=== PATIENT | female | born 1940 | race Caucasian/White ===

== ENCOUNTER 2016-11-29 18:17 | Inpatient (IN) | payer MEDICARE, OTHER ==
[~2016-11-29] VITALS: Ht 160 cm; Wt 65.5 kg
[2016-11-29 18:47] VITALS: BP 175/105; PULSE 112; RESP 18; TEMP 98.5; O2SAT 98
[2016-11-29 21:35] LABS: AUTOMATED NEUTROPHIL # 5.4 TH/MM3 (1.8-7.7); BASOPHIL # 0.1 TH/MM3 (0-0.2); BASOPHIL % 1.3 % (0.0-2.0); EOSINOPHIL % 9.5 % (0.0-4.0); HEMATOCRIT 42.5 % (35.0-46.0); HEMO FLAGS DIFF FINAL; LYMPHOCYTE # 2.8 TH/MM3 (1.0-4.8); MEAN CORPUSCULAR HEMOGLOBIN 26.8 PG (27.0-34.0); MEAN CORPUSCULAR HGB CONC 33.1 % (32.0-36.0); MONO % 7.5 % (0.0-8.0); NEUT % 53.7 % (16.0-70.0); PLATELET COUNT 275 TH/MM3 (150-450); RED BLOOD COUNT 5.25 MIL/MM3 (4.00-5.30); RED CELL DISTRIBUTION WIDTH 12.8 % (11.6-17.2)
[2016-11-29 22:04] LABS: ANION GAP 11 MEQ/L (5-15)
[2016-11-29 22:08] LABS: ALKALINE PHOSPHATASE 132 U/L (45-117); ALT (GPT) 25 U/L (10-53); AST (GOT) 23 U/L (15-37); BLOOD UREA NITROGEN 18 MG/DL (7-18); CHLORIDE 103 MEQ/L (98-107); GLOMERULAR FILTRATION RATE 78 ML/MIN (>89); POTASSIUM 3.8 MEQ/L (3.5-5.1); SODIUM (NA) 137 MEQ/L (136-145); TOTAL BILIRUBIN ADULT 0.3 MG/DL (0.2-1.0)
[2016-11-29 22:14] LABS: ACETAMINOPHEN LESS THAN 2.0 MCG/ML (10.0-30.0); ALCOHOL LESS THAN 3 MG/DL (0-5)
--- NOTE | 2016-11-29 23:05 | PD ---
HPI Chief Complaint: Back/ Neck Pain or Injury Time Seen by Provider: 20:17 Travel History International Travel<30 days: No Contact w/Intl Traveler<30days: No Traveled to known affect area: No History of Present Illness HPI Patient is a 76 year old female who is brought in by police under a hig[place] act after reportedly making suicidal statements. She says she was arguing with her grandson and she believes he convinced her daughter to call the police to place her under a [place] Act. She denies feeling suicidal. She denies any medical complaints. [facility] Past Medical History Medical History: Denies Significant Hx Tetanus Vaccination: < 5 Years Influenza Vaccination: No Past Surgical History Surgical History: No Previous Surgery Social History Alcohol Use: No Tobacco Use: No Substance Use: No Allergies-Medications (Allergen,Severity, Reaction): Coded Allergies: [place] [facility] Dust (Verified Allergy, Unknown, 11/29/16) Reported Meds & Prescriptions Reported Meds & Active Scripts Active No Active Prescriptions or Reported Medications Review of Systems Except as stated in HPI: all other systems reviewed are Neg General / Constitutional: No: Fever, Chills Eyes: No: Blurred Vision HENT: No: Headaches, Lightheadedness Cardiovascular: No: Chest Pain or Discomfort Respiratory: No: Shortness of Breath Gastrointestinal: No: Nausea, Vomiting Musculoskeletal: No: Edema, Pain Skin: No Rash, No Change in Pigmentation Neurologic: No: Weakness, Dizziness Physical Exam Narrative GENERAL: Awake and alert, in no acute distress. SKIN: Focused skin assessment warm/dry. HEAD: Atraumatic. Normocephalic. EYES: Pupils equal and round. No scleral icterus. EOMI ENT: Mucous membranes pink and moist. NECK: Trachea midline. No JVD. CARDIOVASCULAR: Regular rate and rhythm. No murmur appreciated. RESPIRATORY: No accessory muscle use. Clear to auscultation. Breath sounds equal bilaterally. GASTROINTESTINAL: Abdomen soft, non-tender, nondistended. MUSCULOSKELETAL: No obvious deformities. No clubbing. No cyanosis. No edema. NEUROLOGICAL: Awake and alert. No obvious cranial nerve deficits. Motor grossly within normal limits. Normal speech. PSYCHIATRIC: Appropriate mood and affect; insight and judgment normal. Data Data Last Documented VS Vital Signs Date Time Temp Pulse Resp B/P (MAP) Pulse Ox O2 Delivery O2 Flow Rate FiO2 11/29/16 20:19 18 11/29/16 18:47 98.5 112 175/105 (128) 98 Orders Orders Complete Blood Count With Diff (11/29/16 19:08) Comprehensive Metabolic Panel (11/29/16 19:08) Psych Screen (11/29/16 19:08) Drug Screen, Random Urine (11/29/16 19:08) Alcohol (Ethanol) (11/29/16 19:08) Salicylates (Aspirin) (11/29/16 19:08) Tylenol (Acetaminophen) (11/29/16 19:08) Labs Laboratory Tests Test 11/29/16 18:28 11/29/16 19:50 Urine Opiates Screen NEG Urine Barbiturates Screen NEG Urine Amphetamines Screen NEG Urine Benzodiazepines Screen NEG Urine Cocaine Screen NEG Urine Cannabinoids Screen NEG White Blood Count 10.0 TH/MM3 Red Blood Count 5.25 MIL/MM3 Hemoglobin 14.1 GM/DL Hematocrit 42.5 % Mean Corpuscular Volume 81.0 FL Mean Corpuscular Hemoglobin 26.8 PG Mean Corpuscular Hemoglobin Concent 33.1 % Red Cell Distribution Width 12.8 % Platelet Count 275 TH/MM3 Mean Platelet Volume 8.9 FL Neutrophils (%) (Auto) 53.7 % Lymphocytes (%) (Auto) 28.0 % Monocytes (%) (Auto) 7.5 % Eosinophils (%) (Auto) 9.5 % Basophils (%) (Auto) 1.3 % Neutrophils # (Auto) 5.4 TH/MM3 Lymphocytes # (Auto) 2.8 TH/MM3 Monocytes # (Auto) 0.8 TH/MM3 Eosinophils # (Auto) 1.0 TH/MM3 Basophils # (Auto) 0.1 TH/MM3 CBC Comment DIFF FINAL Differential Comment Blood Urea Nitrogen 18 MG/DL Creatinine 0.73 MG/DL Random Glucose 134 MG/DL Total Protein 8.3 GM/DL Albumin 4.2 GM/DL Calcium Level 9.5 MG/DL Alkaline Phosphatase 132 U/L Aspartate Amino Transf (AST/SGOT) 23 U/L Alanine Aminotransferase (ALT/SGPT) 25 U/L Total Bilirubin 0.3 MG/DL Sodium Level 137 MEQ/L Potassium Level 3.8 MEQ/L Chloride Level 103 MEQ/L Carbon Dioxide Level 23.0 MEQ/L Anion Gap 11 MEQ/L Estimat Glomerular Filtration Rate 78 ML/MIN Salicylates Level LESS THAN 1.7 MG/DL Acetaminophen Level LESS THAN 2.0 MCG/ML Ethyl Alcohol Level LESS THAN 3 MG/DL MDM Medical Decision Making Medical Screen Exam Complete: Yes Emergency Medical Condition: Yes Differential Diagnosis Psychosis versus electrolyte abnormality versus intoxication versus depression Narrative Course Patient is a 76-year-old female brought in by police under [place] act. She denies any complaints at this time. Exam shows no acute abnormalities. Labs sent show no acute abnormalities. Patient will be medically cleared for psychiatric screening. Diagnosis Primary Impression: Medical clearance for psychiatric admission Scripts No Active Prescriptions or Reported Meds Condition: Ashly Chamorro MD Nov 29, 2016 23:05
[2016-11-30 06:24] VITALS: BP 167/87; PULSE 97; RESP 18; O2SAT 97
[2016-11-30 07:57] VITALS: BP 139/82; PULSE 107; RESP 19; TEMP 97.6; O2SAT 96
[2016-11-30] MEDS ORDERED: LORazepam 2 MG/ML VIAL IM PRN (13:30)
[2016-11-30] MEDS ORDERED: ACETAMINOPHEN 325 MG TAB PO PRN (13:30)
[2016-11-30] MEDS ORDERED: LORazepam 1 MG TAB PO PRN (13:30)
[2016-11-30] MEDS ORDERED: ALUMINUM/MAGNESIUM/SIMETH 30 ML CUP PO PRN (13:30)
[2016-11-30] MEDS ORDERED: MAGNESIUM HYDROXIDE SUSP 30 ML CUP PO PRN (13:30)
--- NOTE | 2016-11-30 14:08 | HHI.HP ---
Provisional Diagnosis Admission Date [place]. Adjustment disorder with mixed disturbance of emotion and conduct. rule out traumatic brain injury Certification of Person's Competence To Provide Express and Informed Consent I have personally examined Gisselle Dinero , a person being served at [facility] on, Nov 30, 2016 13:31. Express and informed consent means consent voluntarily given in writing, by a competent person, after sufficient explanation and disclosure of the subject matter involved to enable the person to make a knowing and willful decision without any element of force, fraud, deceit, duress, or other form of constraint or coercion. This person is 18 years of age or older, is not now known to be incompetent to consent to treatment with a guardian advocate, and does not have a health care surrogate or proxy currently making medical treatment decisions. I have found this person to be one of the following: [] Competent to provide express and informed consent, as defined above, for voluntary admission to this facility and is competent to provide express and informed consent for treatment. He/she has the consistent capacity to make well reasoned, willful, and knowing decisions concerning his or her medical or mental health treatment. The person fully and consistently understands the purpose of the admission for examination/placement and is fully capable of personally exercising all rights assured [place] [x] Incompetent to provide express and informed consent to voluntary admission, and this is incompetent to provide express and informed consent to treatment. The person must be transferred to involuntary status and a petition for a guardian advocate filed with the Circuit Court. [] Refusing to provide express and informed consent to voluntary admission but is competent to provide express and informed consent for treatment. The person must be discharged or transferred to involuntary status. Form shall be completed within 24 hours of a person's arrival at the receiving facility and filed in the clinical record of each person: 1. Admitted on a voluntary basis 2. Permitted to provide express and informed consent to his/her own treatment 3. Allowed to transfer from involuntary to voluntary status 4. Prior to permitting a person to consent to his or her own treatment after having been previously found incompetent to consent to treatment. History of Present Illness Capacity: Lacks Capacity HPI 76-year-old female, poor historian, being admitted under a [place] act for making suicidal statements. When this physician questioned the patient as to the reason she was here in the hospital, she replied with a long story of how her grandson lived 2 doors down from her and was spoiled by her throughout his life. That he wanted her to pay for his insurance, etc. (After multiple attempts, patient was still unable to answer questions cogently and relevantly. ) Finally, patient indicates her grandson, Fredrick, called the police and told them she was unable to care for herself. Patient feels this is not true and she denies making suicidal statements. However, patient gave this physician permission to call her daughter. Patient's daughter states patient has changed dramatically over the last 4 weeks including a personality change, a loss of balance, confusing statements as well as suicidal statements. Daughter states patient has left hospital evaluations before receiving results or treatment recommendations. Daughter reports patient has been said to have "fluid on the brain". When confronted with this information, the patient denies balance problems and states she has allergies. When confronted with her leaving the hospitals without complete evaluations and care, the patient states she wants no more evaluations and no more care. This physician interviewed her with a DCF franchise sales representative present and both this physician and DCF feel the patient is unable to care for herself at this time. Review of Systems Except as stated in HPI: all other systems reviewed are Neg Past Psych History Psychological trauma history Denied Violence risk - others (6 mos) Moderate Violence risk - self (6 mos) High Substance Abuse History Drugs/Alcohol past 12 months Denied Past Family Social History Coded Allergies: [place] [facility] Dust (Verified Allergy, Unknown, 11/29/16) No Active Prescriptions or Reported Meds Family History Positive for mood disorders Social History Patient reports she has been employed until recently. She denies a history of alcoholism and drug abuse. She reportedly raised her grandson Fredrick, the one who is now initiating the Higginbotham act. Patient's Strengths (min. 2) Resilient and has access to healthcare. Physical Exam GENERAL: SKIN: Warm and dry. HEAD: Normocephalic. EYES: No scleral icterus. No injection or drainage. NECK: Supple, trachea midline. No JVD or lymphadenopathy. CARDIOVASCULAR: Regular rate and rhythm without murmurs, gallops, or rubs. RESPIRATORY: Breath sounds equal bilaterally. No accessory muscle use. GASTROINTESTINAL: Abdomen soft, non-tender, nondistended. MUSCULOSKELETAL: No cyanosis, or edema. BACK: Nontender without obvious deformity. No CVA tenderness. Vital Signs Vital Signs Date Time Temp Pulse Resp B/P (MAP) Pulse Ox O2 Delivery O2 Flow Rate FiO2 11/30/16 07:57 97.6 107 19 139/82 (101) 96 Room Air Lab Results Test 11/29/16 18:28 11/29/16 19:50 Urine Opiates Screen NEG Urine Barbiturates Screen NEG Urine Amphetamines Screen NEG Urine Benzodiazepines Screen NEG Urine Cocaine Screen NEG Urine Cannabinoids Screen NEG White Blood Count 10.0 TH/MM3 Red Blood Count 5.25 MIL/MM3 Hemoglobin 14.1 GM/DL Hematocrit 42.5 % Mean Corpuscular Volume 81.0 FL Mean Corpuscular Hemoglobin 26.8 PG Mean Corpuscular Hemoglobin Concent 33.1 % Red Cell Distribution Width 12.8 % Platelet Count 275 TH/MM3 Mean Platelet Volume 8.9 FL Neutrophils (%) (Auto) 53.7 % Lymphocytes (%) (Auto) 28.0 % Monocytes (%) (Auto) 7.5 % Eosinophils (%) (Auto) 9.5 % Basophils (%) (Auto) 1.3 % Neutrophils # (Auto) 5.4 TH/MM3 Lymphocytes # (Auto) 2.8 TH/MM3 Monocytes # (Auto) 0.8 TH/MM3 Eosinophils # (Auto) 1.0 TH/MM3 Basophils # (Auto) 0.1 TH/MM3 CBC Comment DIFF FINAL Differential Comment Blood Urea Nitrogen 18 MG/DL Creatinine 0.73 MG/DL Random Glucose 134 MG/DL Total Protein 8.3 GM/DL Albumin 4.2 GM/DL Calcium Level 9.5 MG/DL Alkaline Phosphatase 132 U/L Aspartate Amino Transf (AST/SGOT) 23 U/L Alanine Aminotransferase (ALT/SGPT) 25 U/L Total Bilirubin 0.3 MG/DL Sodium Level 137 MEQ/L Potassium Level 3.8 MEQ/L Chloride Level 103 MEQ/L Carbon Dioxide Level 23.0 MEQ/L Anion Gap 11 MEQ/L Estimat Glomerular Filtration Rate 78 ML/MIN Salicylates Level LESS THAN 1.7 MG/DL Acetaminophen Level LESS THAN 2.0 MCG/ML Ethyl Alcohol Level LESS THAN 3 MG/DL Mental Status Examination Speech: Hesitant, Other Orientation: Person, Place Memory: Impaired (describe) Thought Process: Circumstantial, Tangential Thought Content: Bizarre thinking Hallucination Type: None Attention and Concentration: Abnormal Suicidal Ideation: No Previous Suicide Attempts: No Homicidal Ideation: No Previous Homicide Attempts: No Insight: Fair Judgment: Impulsive Affect: Anxious Mood: Irritable Motor Activity: Normal gait Assessment & Plan Problem List: (1) Adjustment disorder with mixed disturbance of emotions and conduct ICD Codes: F43.25 - Adjustment disorder with mixed disturbance of emotions and conduct Assessment & Plan Estimated LOS: days 76-year-old female, poor historian, [place] acted for making suicidal threats and possibly inability to care for self. Patient's poor historian indicates to this physician that she cannot be relied upon to provide an accurate or credible history. Therefore her statement, confirmed by the patient's daughter, that she was suicidal is an indication of high risk that the patient may harm herself. Additionally, the patient's daughter feels that something happened for weeks ago that is causing the cognitive dysfunction the patient is experiencing. The patient also told this physician that she had been in the emergency department for 3 days when in reality she has been here approximately 24 hours. She did not know what day of the week this is. Patient being admitted and this physician is ordering a CBC and comprehensive metabolic panel to evaluate her for infectious process or metabolic process which may be causing or contributing to her confusion. Patient is also receiving TSH levels, vitamin B-12 levels and vitamin D levels to determine if deficiencies in these areas are causing or contributing to her confusion. A hospitalist consult is being obtained with possible neurological follow up as the patient reportedly has a history of "fluid on the brain". This physician is ordering an EKG to determine the patient's cardiac conduction status prior to using psychotropics which may alter her cardiac conduction system. Finally, patient is going to receive a second opinion from the psychiatry department because she does not appear to be competent to provide informed consent at this time. This physician spoke with the patient's nurse regarding her recent behavior. This physician is also involving case management to gather further information and assist with disposition planning. Tony Walker MD Nov 30, 2016 14:08
[2016-11-30 15:01] VITALS: BP 138/63; PULSE 109; RESP 20; TEMP 97.9; O2SAT 95
--- NOTE | 2016-11-30 17:55 | PD.CONS ---
HPI Service CP Hospitalists Consult Requested By Dr. Walker Reason for Consult Eval and assist with treatment. Patient daughter reports 4 week change in personality, cognitive change, balance problems and "fluid on the brain." Primary Care Physician No Primary Care Physician Diagnoses: History of Present Illness This is a 76 year old female patient with a past medical history which includes : DM type 2. peripheral neuropathy and hyperlipemia. Patient currently in the hospital under backer act after reportedly making suicidal statements. Patient appears to be a poor historian information gathered from patient as well as prior charting. Patient able to tell us her name, date of , that she is in the hospital, able to tell us the president correctly but thinks its year 2011. Patient has had a recent hospitalization at [facility] from 11/27/16 till 11/29/16 left AMA. Patient reports that she was brought here by police under a cardenas act family was concerned for patient's safety. Patient reportedly made suicidal statements. Patient does endorse she did have one fall recently. Patient feels that her balance is fine. Patient is continent of both urine and stool. Denies pain, shortness of breath, n/v/d/c, Review of Systems ROS Limitations: Poor Historian Constitutional: DENIES: Fatigue, Fever, Chills Eyes: DENIES: Blurred vision, Diplopia, Vision loss Respiratory: DENIES: Cough, Sputum production, Shortness of breath Cardiovascular: DENIES: Chest pain, Palpitations, Dyspnea on Exertion, Lower Extremity Edema Gastrointestinal: DENIES: Abdominal pain, Constipation, Diarrhea Genitourinary: DENIES: Urinary frequency, Urinary incontinence, Urgency, Dysuria Neurologic: DENIES: Abnormal gait, Headache, Localized weakness, Poor Balance Psychiatric: DENIES: Anxiety, Confusion, Depression Past Family Social History Past Medical History DM type 2. peripheral neuropathy and hyperlipemia Past Surgical History I&D right foot abscess 2013, hysterectomy Reported Medications No Active Prescriptions or Reported Medications Allergies: Coded Allergies: [place] House Dust (Verified Allergy, Unknown, 11/29/16) Active Ordered Medications Current Medications Medications (Trade) Dose Ordered Sig/Otto Route Start Time Stop Time Status Last Admin (Ativan) 1 mg Q6H PRN PO 11/30/16 13:30 (Ativan Inj) 1 mg Q6H PRN IM 11/30/16 13:30 (Tylenol) 650 mg Q4H PRN PO 11/30/16 13:30 (Milk Of Magnesia Liq) 30 ml DAILY PRN PO 11/30/16 13:30 (Mag-Al Plus Susp Liq) 30 ml Q6H PRN PO 11/30/16 13:30 Family History Mother and Father in there 70's Mother had heart disease and DM Father had DM Social History Lives alone has family that lives locally denies ETOH use, tobacco use or illicit drug use Physical Exam Vital Signs Vital Signs Date Time Temp Pulse Resp B/P (MAP) Pulse Ox O2 Delivery O2 Flow Rate FiO2 11/30/16 15:01 97.9 109 20 138/63 (88) 95 Room Air 11/30/16 07:57 97.6 107 19 139/82 (101) 96 Room Air 11/30/16 07:57 107 19 11/30/16 06:24 97 18 167/87 (113) 97 Room Air 11/29/16 20:19 18 11/29/16 18:47 98.5 112 18 175/105 (128) 98 Physical Exam GENERAL: This is a well-nourished, well-developed patient, tangential speech. SKIN: abrasion left johnson HEAD: Atraumatic. Normocephalic. No temporal or scalp tenderness. EYES: Extraocular motions intact. No scleral icterus. No injection or drainage. CARDIOVASCULAR: Regular rate and rhythm RESPIRATORY: Clear to auscultation. Breath sounds equal bilaterally. No wheezes , rales, or rhonchi. GASTROINTESTINAL: Abdomen soft, non-tender, nondistended. No hepato-splenomegaly , or palpable masses. No guarding. MUSCULOSKELETAL: Extremities without clubbing, cyanosis, or edema. No joint tenderness, effusion, or edema noted. No calf tenderness. Negative Homans sign bilaterally. NEUROLOGICAL: Awake and alert. No focal deficits. Motor and sensory grossly within normal limits. 4-5 out of 5 muscle strength in all muscle groups. Tangential speech. Patient able to tell us her name, date of , that she is in the hospital, able to tell us the president correctly but thinks its year 2011. Laboratory Laboratory Tests Test 11/29/16 18:28 11/29/16 19:50 Urine Opiates Screen NEG Urine Barbiturates Screen NEG Urine Amphetamines Screen NEG Urine Benzodiazepines Screen NEG Urine Cocaine Screen NEG Urine Cannabinoids Screen NEG White Blood Count 10.0 Red Blood Count 5.25 Hemoglobin 14.1 Hematocrit 42.5 Mean Corpuscular Volume 81.0 Mean Corpuscular Hemoglobin 26.8 Mean Corpuscular Hemoglobin Concent 33.1 Red Cell Distribution Width 12.8 Platelet Count 275 Mean Platelet Volume 8.9 Neutrophils (%) (Auto) 53.7 Lymphocytes (%) (Auto) 28.0 Monocytes (%) (Auto) 7.5 Eosinophils (%) (Auto) 9.5 Basophils (%) (Auto) 1.3 Neutrophils # (Auto) 5.4 Lymphocytes # (Auto) 2.8 Monocytes # (Auto) 0.8 Eosinophils # (Auto) 1.0 Basophils # (Auto) 0.1 CBC Comment DIFF FINAL Differential Comment Blood Urea Nitrogen 18 Creatinine 0.73 Random Glucose 134 Total Protein 8.3 Albumin 4.2 Calcium Level 9.5 Alkaline Phosphatase 132 Aspartate Amino Transf (AST/SGOT) 23 Alanine Aminotransferase (ALT/SGPT) 25 Total Bilirubin 0.3 Sodium Level 137 Potassium Level 3.8 Chloride Level 103 Carbon Dioxide Level 23.0 Anion Gap 11 Estimat Glomerular Filtration Rate 78 Salicylates Level LESS THAN 1.7 Acetaminophen Level LESS THAN 2.0 Ethyl Alcohol Level LESS THAN 3 Result Diagram: 11/29/16194911/29/161949 Assessment and Plan Problem List: (1) Adjustment disorder with mixed disturbance of emotions and conduct ICD Codes: F43.25 - Adjustment disorder with mixed disturbance of emotions and conduct Status: Acute Plan: Patient was admitted to [facility] from till 11/29/16 Records reviewed and include: CT brain 11/27/16 at [facility] moderate nonspecific low attenuation bifrontal white matter changes. Some nonspecific prominence to portions of the supratentorial ventricular system with Vance ratio 0.33. consider central greater than peripheral atrophy, possible subtle changes of underlying NPH. No gross focal mass, intracranial hemorrhage or large territorial acute CVA. MRI brain with and without contrast at [facility] reports: No acute intracranial abnormalities. mild to moderate parenchymal volume loss consistent with Alzheimer's dementia MRA impression normal MRA head US bilateral carotid arteries at [facility]: less than 50% stenosis in both vertebral arteries TSH 3.510, Free T4, Vit B12 1157 UA negative ketone, neg protein , neg nitrites, 1+ Leuk Est with many squamous epithelial neg toxicology screen DM type 2 accu checks ACHS adjust as needed diabetic diet elevated BP BP elevated in ER may be due to situation/anxiety monitor trend Dementia clinical exam consistent with dementia MRI brain with and without contrast at [facility] reports: No acute intracranial abnormalities. mild to moderate parenchymal volume loss consistent with Alzheimer's dementia will defer to Psych for further manage DVT prophylaxis patient ambulatory and low risk Assessment and Plan Patient examined. Assessment and plan formulated with Venus Jack PA-C. I agree with the above. Pt seems to have worsening dementia with agitation. I dont' think her ct and mri brain imaging represent nph Ceci Jama Nov 30, 2016 17:55 Tony Leonardo MD Dec 04, 2016 14:48
[2016-11-30] MEDS ORDERED: DEXTROSE 50% IN WATER 50 ML VIAL(D50) IV PUSH PRN (19:45)
[2016-11-30] MEDS ORDERED: GLUCAGON 1 MG/ML VIAL OTHER PRN (19:45)
[2016-11-30 20:05] VITALS: BP 143/74; PULSE 101; RESP 20; TEMP 98.3; O2SAT 95
[2016-11-30 20:25] VITALS: BP 133/74; PULSE 106; RESP 18; TEMP 98.3; O2SAT 96
[2016-11-30] MEDS: INSULIN ASPART SUPPLEMENTAL SCALE SQ SCH (21:38)
[2016-12-01 06:00] VITALS: BP 138/90; PULSE 91; RESP 16; TEMP 97.7; O2SAT 97
[2016-12-01] MEDS: INSULIN ASPART SUPPLEMENTAL SCALE SQ SCH ×4 (08:26→20:14)
[2016-12-01 11:09] LABS: AUTOMATED NEUTROPHIL # 7.3 TH/MM3 (1.8-7.7); BASOPHIL # 0.1 TH/MM3 (0-0.2); BASOPHIL % 1.1 % (0.0-2.0); EOSINOPHIL # 1.2 TH/MM3 (0-0.4); EOSINOPHIL % 10.2 % (0.0-4.0); HEMATOCRIT 45.4 % (35.0-46.0); HEMO FLAGS DIFF FINAL; LYMPH % 22.6 % (9.0-44.0); LYMPHOCYTE # 2.7 TH/MM3 (1.0-4.8); MEAN CELL VOLUME 82.2 FL (80.0-100.0); MEAN CORPUSCULAR HGB CONC 32.8 % (32.0-36.0); MONO % 6.1 % (0.0-8.0); PLATELET COUNT 296 TH/MM3 (150-450); RED BLOOD COUNT 5.52 MIL/MM3 (4.00-5.30); RED CELL DISTRIBUTION WIDTH 13.3 % (11.6-17.2); WHITE BLOOD COUNT 12.1 TH/MM3 (4.0-11.0)
[2016-12-01 11:18] LABS: ALT (GPT) 23 U/L (10-53); ANION GAP 9 MEQ/L (5-15); AST (GOT) 20 U/L (15-37); BICARBONATE 24.6 MEQ/L (21.0-32.0); BLOOD UREA NITROGEN 27 MG/DL (7-18); CHLORIDE 104 MEQ/L (98-107); GLOMERULAR FILTRATION RATE 64 ML/MIN (>89); POTASSIUM 4.5 MEQ/L (3.5-5.1); SODIUM (NA) 138 MEQ/L (136-145)
[2016-12-01 11:44] LABS: ALKALINE PHOSPHATASE 135 U/L (45-117); HDL CHOLESTEROL 47.2 MG/DL (40.0-60.0); TOTAL BILIRUBIN ADULT 0.4 MG/DL (0.2-1.0)
--- NOTE | 2016-12-01 16:46 | PD.TTN ---
Patient Problems 1. Discharge planning 2. Medication compliance 3. Knowledge deficit 4. Lack of coping skills Progress Toward Goals Provider Present: Dr. Dawson Dudley Provider Input: Dr. Nicholson's treatment team met to discuss patient's treatment, discharge, and medication. Patient at this time will remain on unit until stablized. Nurse(s) Input: Patient's Nurse stated patient will not take her diabetes medication even though it is high. Patient is labile, confused has no insight Psychiatric Counselors Present: Suzette Camarillo [facility] Psych Therapist Input: Patient seen today. Patient presented confused about her hospitalization. Has poor insight . Patient feels her family is aganist her and she does not need to be here. Per patient's nurse during report there is an active investigation on patient not being able to return to home due to hoarding and being comdemned. Verified this information with [facility] and left a message for Breann Keny [phone] to contact this counselor on investigation. Patient during assessment patient denies suicidal and homicidal ideation. Patient does present with some paranoia that everyone is aganist her. Patient's short and group home memory appear to be affected. Patient's speech is clear, pressured and can present well but if you continue to speak to patient, she will become confused and disorganized. Patient's mood and affect are congruent. It is unclear at this time if patient will return to her home or need placement. [facility] Dec 01, 2016 16:46
[2016-12-01 16:59] LABS: HEMOGLOBIN A1a 1.3 %; HEMOGLOBIN A1b 2.3 %; HEMOGLOBIN Ao 81.5 %; HEMOGLOBIN LA1C 2.7 %; HEMOGLOBIN P3 4.3 %
[2016-12-01 18:00] VITALS: BP 112/59; PULSE 107; RESP 20; TEMP 98.1; O2SAT 95
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
[2016-12-02 06:00] VITALS: BP 132/68; PULSE 102; RESP 16; TEMP 98.2; O2SAT 95
[2016-12-02] MEDS: INSULIN ASPART SUPPLEMENTAL SCALE SQ SCH ×4 (07:48→21:00)
--- NOTE | 2016-12-02 10:12 | MH ---
cc: ELVIS RICE M.D. DATE OF ADMISSION 11/30/2016 ADDENDUM Individual session, reviewed with the treatment team, telephone conversation with daughter Keren. Please refer to my progress note sheet in regards to the contents of individual psychotherapy session. I have initiated the involuntary admission, in view of the patient's refusal to continued stay in the hospital and her lack of capacity to consent for treatment. I had a telephone conversation with her daughter Keren. The purpose of this was to gather more background information, review diagnosis, treatment approach and discuss discharge plans. She indicated that the patient has a history of hoarding to the point where it is difficult to even walk in the house. DCF is involved. She also informed me that the patient drinks a large quantity of "energy drinks" and as such has been sleep deprived. I also reviewed the medical history and physical from [facility] indicating the same. I also noticed a neuro consult was requested, but I do not have any records in this regard. The patient's daughter also could not verify this. As such, I have requested a neuro consult which is pending at this time. The daughter denied any history of previous psychiatric intervention. She did indicate that DCF is involved. I explained to her the patient's condition and the need for supervised living either at home with the help of family members or in an assisted living facility/custodial. We could not continue the conversation as we got cut off. MD AUSTIN Mendoza/RICARDO /9:54 AM /10:04 AM
--- NOTE | 2016-12-02 14:42 | EKG ---
Date Performed: 12/02/2016 Time Performed: 11:24:25 PTAGE: 76 years EKG: ECTOPIC ATRIAL TACHYCARDIA WITH SHORT [place] INTERVAL NONSPECIFIC T-WAVE ABNORMALITY ABNORMAL R HYTHM ECG NO PREVIOUS TRACING DOCTOR: Claudio Dominguez Interpretating Date/Time 12/02/2016 14:37:03
--- NOTE | 2016-12-02 16:15 | PD.PSY.CON ---
Provisional Diagnosis Admission Date Nov 30, 2016 at 13:28 [place] I. Adjustment disorder with mixed disturbance of emotion and conduct. rule out traumatic brain injury History of Present Illness Service Psychiatry Consult Requested By Dr. see Reason for Consult Second opinion petition supporting [place] act Primary Care Physician No Primary Care Physician HPI 76-year-old female, poor historian, being admitted under a [place] act for making suicidal statements. When this physician questioned the patient as to the reason she was here in the hospital, she replied with a long story of how her grandson lived 2 doors down from her and was spoiled by her throughout his life. That he wanted her to pay for his insurance, etc. (After multiple attempts, patient was still unable to answer questions cogently and relevantly. ) Finally, patient indicates her grandson, Fredrick, called the police and told them she was unable to care for herself. Patient feels this is not true and she denies making suicidal statements. However, patient gave this physician permission to call her daughter. Patient's daughter states patient has changed dramatically over the last 4 weeks including a personality change, a loss of balance, confusing statements as well as suicidal statements. Daughter states patient has left hospital evaluations before receiving results or treatment recommendations. Daughter reports patient has been said to have "fluid on the brain". When confronted with this information, the patient denies balance problems and states she has allergies. When confronted with her leaving the hospitals without complete evaluations and care, the patient states she wants no more evaluations and no more care. This physician interviewed her with a DCF sales representative raw fibers present and both this physician and DCF feel the patient is unable to care for herself at this time. 12/02/16 Above note dictated by Dr. Tony Walker reviewed and agreed with. Patient was admitted to Dr. see's service under the [place] act. Patient seen by me in day room the floor staff, patient overall alert somewhat irritable, patient showing no insight into her behaviors leading to this hospitalization. It appears she doesn't have inability to live independently at this time. Dr. see #first opinion petition supporting [place] act. I agree patient meets criteria for involuntary psychiatric hospitalization under the [place] act. Thus I'll cosign second opinion petition supporting [place] act Past Family Social History Coded Allergies: [place] House Dust (Verified Allergy, Unknown, 11/29/16) No Active Prescriptions or Reported Meds Current Medications Medications (Trade) Dose Ordered Sig/Otto Route Start Time Stop Time Status Last Admin (Ativan) 1 mg Q6H PRN PO 11/30/16 13:30 (Ativan Inj) 1 mg Q6H PRN IM 11/30/16 13:30 (Tylenol) 650 mg Q4H PRN PO 11/30/16 13:30 (Milk Of Magnesia Liq) 30 ml DAILY PRN PO 11/30/16 13:30 (Mag-Al Plus Susp Liq) 30 ml Q6H PRN PO 11/30/16 13:30 (D50w (Vial) Inj) 50 ml UNSCH PRN IV PUSH 11/30/16 19:45 (Glucagon Inj) 1 mg UNSCH PRN OTHER 11/30/16 19:45 (NovoLOG SUPPLEMENTAL SCALE) 1 ACHS SLIDING SCALE SQ 11/30/16 21:00 12/01/16 08:26 (Glucophage) 500 mg BIDPC PO 12/02/16 18:00 Patient's Strengths (min. 2) Resilient and has access to healthcare. Physical Exam Vital Signs Vital Signs Date Time Temp Pulse Resp B/P (MAP) Pulse Ox O2 Delivery O2 Flow Rate FiO2 12/02/16 06:00 98.2 102 16 132/68 (89) 95 11/30/16 15:01 Room Air I/O 12/02/16 12/02/16 12/03/16 08:00 16:00 00:00 Intake Total 480 ml 960 ml Balance 480 ml 960 ml Mental Status Examination Appearance: Appropriate Consciousness: Alert Orientation: Person, Place, Situation Motor Activity: Normal gait Speech: Unremarkable Language: Adequate Fund of Knowledge: Adequate Attention and Concentration: Other (fair) Memory: Impaired Mood: Appropriate, Irritable Affect: Other (slight increased range and intensity) Thought Process & Associations: Disorganized (mildly) Thought Content: Appropriate Hallucination Type: None Delusion Type: Other (vigilant) Suicidal Ideation: No Suicidal Plan: No Suicidal Intention: No Homicidal Ideation: No Homicidal Plan: No Homicidal Intention: No Insight: Poor Judgment: Poor Assessment & Plan Problem List: (1) Adjustment disorder with mixed disturbance of emotions and conduct ICD Codes: F43.25 - Adjustment disorder with mixed disturbance of emotions and conduct Assessment & Plan Estimated LOS: Everton Ge MD Dec 02, 2016 16:15
--- NOTE | 2016-12-02 16:17 | PD.PSY.CON ---
Provisional Diagnosis Admission Date Nov 30, 2016 at 13:28 [place] I. Adjustment disorder with mixed disturbance of emotion and conduct. rule out traumatic brain injury History of Present Illness Service Psychiatry Consult Requested By Reason for Consult Second opinion Primary Care Physician No Primary Care Physician HPI 76-year-old female, poor historian, being admitted under a [place] act for making suicidal statements. When this physician questioned the patient as to the reason she was here in the hospital, she replied with a long story of how her grandson lived 2 doors down from her and was spoiled by her throughout his life. That he wanted her to pay for his insurance, etc. (After multiple attempts, patient was still unable to answer questions cogently and relevantly. ) Finally, patient indicates her grandson, Fredrick, called the police and told them she was unable to care for herself. Patient feels this is not true and she denies making suicidal statements. However, patient gave this physician permission to call her daughter. Patient's daughter states patient has changed dramatically over the last 4 weeks including a personality change, a loss of balance, confusing statements as well as suicidal statements. Daughter states patient has left hospital evaluations before receiving results or treatment recommendations. Daughter reports patient has been said to have "fluid on the brain". When confronted with this information, the patient denies balance problems and states she has allergies. When confronted with her leaving the hospitals without complete evaluations and care, the patient states she wants no more evaluations and no more care. This physician interviewed her with a DCF route sales representative present and both this physician and DCF feel the patient is unable to care for herself at this time. The patient is a 76-year-old woman, domicile with her , she denies previous psychiatric history, generalized due to suicidal ideation. Patient seen today for second opinion. She says that she doesn't know why is she here. She says that she has a lot of money "and there is no reason to seclude me and believe to 1 my son is telling rather than believing me". She is a very poor historian, unable to give precise information about the reason of her hospitalization. She is oriented 3, but very talkative, with rapid speech, but no pressure. Patient also makes frequent narcissistic statements with a potential delusional inclusions. She denies suicidal and homicidal ideation, she denies visual and auditory hallucinations. Past Family Social History Coded Allergies: [place] House Dust (Verified Allergy, Unknown, 11/29/16) No Active Prescriptions or Reported Meds Current Medications Medications (Trade) Dose Ordered Sig/Otto Route Start Time Stop Time Status Last Admin (Ativan) 1 mg Q6H PRN PO 11/30/16 13:30 (Ativan Inj) 1 mg Q6H PRN IM 11/30/16 13:30 (Tylenol) 650 mg Q4H PRN PO 11/30/16 13:30 (Milk Of Magnesia Liq) 30 ml DAILY PRN PO 11/30/16 13:30 (Mag-Al Plus Susp Liq) 30 ml Q6H PRN PO 11/30/16 13:30 (D50w (Vial) Inj) 50 ml UNSCH PRN IV PUSH 11/30/16 19:45 (Glucagon Inj) 1 mg UNSCH PRN OTHER 11/30/16 19:45 (NovoLOG SUPPLEMENTAL SCALE) 1 ACHS SLIDING SCALE SQ 11/30/16 21:00 12/01/16 08:26 (Glucophage) 500 mg BIDPC PO 12/02/16 18:00 Patient's Strengths (min. 2) Resilient and has access to healthcare. Physical Exam Vital Signs Vital Signs Date Time Temp Pulse Resp B/P (MAP) Pulse Ox O2 Delivery O2 Flow Rate FiO2 12/02/16 06:00 98.2 102 16 132/68 (89) 95 11/30/16 15:01 Room Air I/O 12/02/16 12/02/16 12/02/16 07:59 15:59 23:59 Intake Total 480 ml 960 ml Balance 480 ml 960 ml Mental Status Examination Appearance: Appropriate Consciousness: Alert Orientation: x4 Motor Activity: Normal gait Speech: Unremarkable Language: Adequate Fund of Knowledge: Adequate Attention and Concentration: Adequate Memory: Unremarkable Mood: Irritable Affect: Irritable, Labile Thought Process & Associations: Intact Thought Content: Appropriate Hallucination Type: None Delusion Type: None Suicidal Ideation: No Suicidal Plan: No Suicidal Intention: No Homicidal Ideation: No Homicidal Plan: No Homicidal Intention: No Insight: Adequate Judgment: Adequate Assessment & Plan Problem List: (1) Adjustment disorder with mixed disturbance of emotions and conduct ICD Codes: F43.25 - Adjustment disorder with mixed disturbance of emotions and conduct Assessment & Plan: I have seen and examined this patient, review documentation of Dr. Nicholson and Dr. Walker, I completely agree with plan and assessment. Consult appreciated. Assessment & Plan Estimated LOS: Darren Fay MD Dec 02, 2016 16:17
[2016-12-02] MEDS: metFORMIN HCL 500 MG TAB PO SCH (17:48)
[2016-12-02 17:56] VITALS: BP 164/87; PULSE 106; RESP 16; TEMP 97.9; O2SAT 100
[2016-12-03 05:55] VITALS: BP 128/65; PULSE 95; RESP 17; TEMP 98.1
[2016-12-03] MEDS: INSULIN ASPART SUPPLEMENTAL SCALE SQ SCH ×4 (08:00→21:00)
[2016-12-03] MEDS: metFORMIN HCL 500 MG TAB PO SCH ×2 (09:00→18:00)
[2016-12-03] MEDS ORDERED: PILL SPLITTER OTHER PRN (17:15)
--- NOTE | 2016-12-03 17:52 | MB ---
cc: TORI MENDIETA M.D. DATE OF CONSULTATION 12/03/[address] Nicholson I saw Gisselle Dinero today. I told her that I was a neurologist and was here to conduct a neurological examination. She states that she does not wish to participate at this time in my history taking or evaluation. She was tearful and agitated and stated that she was going to refuse to participate in the mental status examination. Therefore, I terminated my visit. I will be happy to return at a later date when the patient may be more willing to cooperate. MD CLAIR Kenny/ /5:17 PM /5:48 PM
--- NOTE | 2016-12-03 21:56 | PD.CONS ---
History of Present Illness Service Neurology Consult Requested By psych Reason for Consult nph/dementia Primary Care Physician No Primary Care Physician History of Present Illness 76-year-old female, poor historian, being admitted under a [place] act for making suicidal statements. She has been seen by 2 psychiatrists. Neuro consulted for "nph". The patient denies any gait d/o, b/b incontinence. She perseverates about how her grandson has let her down after putting him through college and law school. she cries when she relates this story. she denies headache, neck pain, fever, night sweats, chills, rash, diplopia, vertigo, dizziness. she denies any memory loss. Review of Systems Except as stated in HPI: all other systems reviewed are Neg Substance Abuse History Drugs/Alcohol past 12 months Denied Past Family Social History Coded Allergies: Becki House Dust (Verified Allergy, Unknown, 11/29/16) No Active Prescriptions or Reported Meds Family History Positive for mood disorders Social History Patient reports she has been employed until recently. She denies a history of alcoholism and drug abuse. She reportedly raised her grandson Fredrick, the one who is now initiating the Hig[place] act. Review of Systems All other ROS: ROS reviewed as documented in chart Past Family Social History Allergies: Coded Allergies: Becki House Dust (Verified Allergy, Unknown, 11/29/16) Active Ordered Medications Current Medications Medications (Trade) Dose Ordered Sig/Otto Route Start Time Stop Time Status Last Admin (Ativan) 1 mg Q6H PRN PO 11/30/16 13:30 Future Hold (Ativan Inj) 1 mg Q6H PRN IM 11/30/16 13:30 Future Hold (Tylenol) 650 mg Q4H PRN PO 11/30/16 13:30 (Milk Of Magnesia Liq) 30 ml DAILY PRN PO 11/30/16 13:30 (Mag-Al Plus Susp Liq) 30 ml Q6H PRN PO 11/30/16 13:30 (D50w (Vial) Inj) 50 ml UNSCH PRN IV PUSH 11/30/16 19:45 (Glucagon Inj) 1 mg UNSCH PRN OTHER 11/30/16 19:45 (NovoLOG SUPPLEMENTAL SCALE) 1 ACHS SLIDING SCALE SQ 11/30/16 21:00 12/01/16 08:26 (Glucophage) 500 mg BIDPC PO 12/02/16 18:00 12/03/16 09:00 (Zoloft) 25 mg DAILY PO 12/04/16 09:00 (Pill Splitter) 1 ea UNSCH PRN OTHER 12/03/16 17:15 Exam I&O / VS 12/03/16 12/03/16 12/04/16 15:00 23:00 07:00 Intake Total 1920 ml 240 ml Balance 1920 ml 240 ml Intake Oral 1920 ml 240 ml # Voids 2 Vital Signs Date Time Temp Pulse Resp B/P (MAP) Pulse Ox O2 Delivery O2 Flow Rate FiO2 12/03/16 05:55 98.1 95 17 128/65 (86) General: Alert and Oriented, No acute distress Eye: EOMI Respiratory: Non-labored respirations Neurologic: Alert, Oriented, Normal sensory, Normal motor, No focal defects, CN II-XII intact Exam Comments ox 3, tangential, anxious, was reading a novel by Corazon Fernandez when i entered her room; she was able to tell me the current president, name objects, read and repeat; it was challenging to complete a full mental status exam on her due to her distractability and emotional state. eomi, ou 3-2mm, face sym, 5/ 5 all 4 ext, no rigidity, no tremors, gait steady, able to tandem 5-6 steps, good arm swing, no gait apraix, romberg negative, planterflexor Review/Management Diagnosis/Plan: (1) Cognitive changes ICD Codes: R41.89 - Other symptoms and signs involving cognitive functions and awareness Status: Acute Plan: i don't think she has nph and would certainly not explain any acute changes emerging alz dementia vs metabolic etiology vs structural recs eeg labs mri brain will need further outpatient cognitive testing (2) Diabetes mellitus ICD Codes: E11.9 - Type 2 diabetes mellitus without complications Status: Acute Plan: medical eval needs outpatient f/u with pcp (3) Dyslipidemia ICD Codes: E78.5 - Hyperlipidemia, unspecified Status: Acute Plan: medical eval needs outpatient f/u with pcp (4) Adjustment disorder with mixed disturbance of emotions and conduct ICD Codes: F43.25 - Adjustment disorder with mixed disturbance of emotions and conduct Status: Acute Julius Quispe MD Dec 03, 2016 21:45
[2016-12-04 06:00] VITALS: BP 125/59; PULSE 100; RESP 16; O2SAT 97
[2016-12-04] MEDS: INSULIN ASPART SUPPLEMENTAL SCALE SQ SCH ×4 (08:00→20:17)
[2016-12-04] MEDS: SERTRALINE HCL 50 MG TAB PO SCH (09:35)
[2016-12-04] MEDS: metFORMIN HCL 500 MG TAB PO SCH ×2 (09:35→18:00)
[2016-12-04] MEDS: DONEPEZIL HCL 5 MG TAB PO SCH (09:35)
[2016-12-04 18:32] VITALS: BP 116/64; PULSE 95; RESP 18; TEMP 98.1; O2SAT 98
[2016-12-05 04:00] VITALS: BP 96/51; PULSE 93; RESP 16; TEMP 97.6; O2SAT 95
[2016-12-05] MEDS: INSULIN ASPART SUPPLEMENTAL SCALE SQ SCH ×4 (08:00→20:53)
[2016-12-05] MEDS: SERTRALINE HCL 50 MG TAB PO SCH (09:00)
[2016-12-05] MEDS: DONEPEZIL HCL 5 MG TAB PO SCH (09:00)
[2016-12-05] MEDS: metFORMIN HCL 500 MG TAB PO SCH ×2 (09:00→18:00)
--- NOTE | 2016-12-05 15:22 | HHI.PR ---
Review/Management Diagnosis/Plan: (1) Cognitive changes ICD Codes: R41.89 - Other symptoms and signs involving cognitive functions and awareness Status: Acute Plan: i don't think she has nph and would certainly not explain any acute changes emerging alz dementia vs metabolic etiology vs structural old mri showing moderate atrophy recs she is much more calm and appropriate today eeg-declines labs-stewart,rpr pending mri brain-repeat declines will sign off will need further outpatient cognitive testing in our office; f/u 2 weeks (2) Diabetes mellitus ICD Codes: E11.9 - Type 2 diabetes mellitus without complications Status: Acute Plan: medical eval needs outpatient f/u with pcp (3) Dyslipidemia ICD Codes: E78.5 - Hyperlipidemia, unspecified Status: Acute Plan: medical eval needs outpatient f/u with pcp (4) Adjustment disorder with mixed disturbance of emotions and conduct ICD Codes: F43.25 - Adjustment disorder with mixed disturbance of emotions and conduct Status: Acute Subjective Subjective Comments No acute events reported "i'm on chapter 3 in my book" No headache No chest pain No dyspnea Active Medications Current Medications Medications (Trade) Dose Ordered Sig/Otto Route Start Time Stop Time Status Last Admin (Ativan) 1 mg Q6H PRN PO 11/30/16 13:30 Future Hold (Ativan Inj) 1 mg Q6H PRN IM 11/30/16 13:30 Future Hold (Tylenol) 650 mg Q4H PRN PO 11/30/16 13:30 12/04/16 09:36 (Milk Of Magnesia Liq) 30 ml DAILY PRN PO 11/30/16 13:30 (Mag-Al Plus Susp Liq) 30 ml Q6H PRN PO 11/30/16 13:30 (D50w (Vial) Inj) 50 ml UNSCH PRN IV PUSH 11/30/16 19:45 (Glucagon Inj) 1 mg UNSCH PRN OTHER 11/30/16 19:45 (NovoLOG SUPPLEMENTAL SCALE) 1 ACHS SLIDING SCALE SQ 11/30/16 21:00 12/01/16 08:26 (Glucophage) 500 mg BIDPC PO 12/02/16 18:00 12/04/16 09:35 (Zoloft) 25 mg DAILY PO 12/04/16 09:00 12/04/16 09:35 (Pill Splitter) 1 ea UNSCH PRN OTHER 12/03/16 17:15 (Aricept) 5 mg DAILY PO 12/04/16 09:00 12/04/16 09:35 (Lipitor) 40 mg HS PO 12/05/16 21:00 Allergies Allergies Coded Allergies Becki House Dust (Verified Allergy, Unknown, 11/29/16) Review of Systems All other ROS: ROS reviewed as documented in chart Exam I&O / VS 12/05/16 12/05/16 12/06/16 15:00 23:00 07:00 Intake Total 360 ml Balance 360 ml Intake Oral 360 ml Vital Signs Date Time Temp Pulse Resp B/P (MAP) Pulse Ox O2 Delivery O2 Flow Rate FiO2 12/05/16 04:00 97.6 93 16 96/51 (66) 95 12/04/16 18:32 98.1 95 18 116/64 (81) 98 General: Alert and Oriented, No acute distress Eye: EOMI Respiratory: Non-labored respirations Neurologic: Alert, Oriented, Normal sensory, Normal motor, No focal defects, CN II-XII intact Exam Comments alert, ox 3, "you're " much more calm and relaxed, speech clear, follows, no drift Julius Quispe MD Dec 05, 2016 15:22
[2016-12-05 17:54] VITALS: BP 121/68; PULSE 94; RESP 17; TEMP 97.6; O2SAT 98
[2016-12-05 18:00] VITALS: BP 121/68; PULSE 94; RESP 17; TEMP 97.1; O2SAT 98
[2016-12-05] MEDS: ATORVASTATIN 40 MG TAB PO SCH (20:54)
[2016-12-06 06:14] VITALS: BP 127/60; PULSE 87; RESP 17; TEMP 97.6; O2SAT 97
[2016-12-06] MEDS: INSULIN ASPART SUPPLEMENTAL SCALE SQ SCH ×4 (08:00→20:58)
[2016-12-06] MEDS: metFORMIN HCL 500 MG TAB PO SCH ×2 (08:57→17:35)
[2016-12-06] MEDS: SERTRALINE HCL 50 MG TAB PO SCH (08:57)
[2016-12-06] MEDS: DONEPEZIL HCL 5 MG TAB PO SCH (08:57)
[2016-12-06 16:24] LABS: ANA SCREEN NEG (NEG)
[2016-12-06 18:00] VITALS: BP 137/60; PULSE 97; RESP 18; TEMP 97.5; O2SAT 96
[2016-12-06] MEDS: ATORVASTATIN 40 MG TAB PO SCH (20:58)
[2016-12-07 05:40] VITALS: BP 120/58; PULSE 90; RESP 18; TEMP 97.9; O2SAT 96
[2016-12-07] MEDS: INSULIN ASPART SUPPLEMENTAL SCALE SQ SCH ×4 (08:00→20:41)
[2016-12-07] MEDS: SERTRALINE HCL 50 MG TAB PO SCH (08:45)
[2016-12-07] MEDS: DONEPEZIL HCL 5 MG TAB PO SCH (08:46)
[2016-12-07] MEDS: metFORMIN HCL 500 MG TAB PO SCH ×2 (08:46→18:28)
[2016-12-07 18:14] VITALS: BP 126/71; PULSE 98; RESP 18; TEMP 98.1; O2SAT 95
[2016-12-07] MEDS: ATORVASTATIN 40 MG TAB PO SCH (20:40)
[2016-12-08 06:20] VITALS: BP 115/72; PULSE 90; RESP 16; TEMP 97.7; O2SAT 94
[2016-12-08] MEDS: INSULIN ASPART SUPPLEMENTAL SCALE SQ SCH ×2 (08:00→11:25)
[2016-12-08] MEDS: DONEPEZIL HCL 5 MG TAB PO SCH (08:53)
[2016-12-08] MEDS: SERTRALINE HCL 50 MG TAB PO SCH (08:53)
[2016-12-08] MEDS: metFORMIN HCL 500 MG TAB PO SCH (08:53)
[2016-12-08] MEDS ORDERED: ARIC5TAB2 PO (13:44)
[2016-12-08] MEDS ORDERED: METF500 PO (13:44)
[2016-12-08] MEDS ORDERED: ZOLO50TA PO (13:44)
[2016-12-08] MEDS ORDERED: ATOR40TA16 PO (13:44)
--- NOTE | 2016-12-08 20:17 | MD ---
cc: ELVIS RICE ADMISSION DATE: 11/30/2016 DISCHARGE DATE: 12/08/2016 ADMISSION DIAGNOSIS [place] I: Adjustment reaction with mixed emotional features. 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 Major depressive disorder moderate, single episode. [place] II: No diagnosis. [place] III: Diabetes mellitus type 2, peripheral neuropathy by history. [place] IV: Severity of psychosocial stressors moderate i.e. cognitive decline, medical issues, conflicts with family members. [place] V: Current GAF score 40. DISCHARGE DIAGNOSIS [place] I: Adjustment reaction with mixed emotional features. 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 Major depressive disorder moderate, single episode [place] II: No diagnosis. [place] III: Diabetes mellitus type 2, peripheral neuropathy by history. [place] IV: Severity of psychosocial stressors moderate i.e. cognitive decline, medical issues, conflicts with family members. [place] V: Current GAF score 50. HISTORY OF PRESENT ILLNESS: This 76 year-old white female was brought to the emergency room of this hospital under the [place] Act initiated by the police. According to her daughter, she has not been in the right frame of mine. She also reportedly made a suicidal statement after leaving the hospital saying "she wanted to go home and blow her head off." She was initially admitted to Dr. Walker's service but later was transferred to my service after it was realized that she was under [facility]. Please refer to my initial evaluation for details. LABORATORY FINDINGS CBC with differential was repeated on two different dates and 12/01/2016, her WBC count was slightly elevated at 12.1. ESR was normal. CMP was also done on different dates. Her triglycerides and serum cholesterol was elevated at 405 and 296 respectively. Vitamin B12 were normal. Vitamin D was slightly low at 22.5. TSH was normal. Urine drug screen was negative. Acetaminophen levels were normal. Blood alcohol level was less than 3. LEONARD was negative. RPR was nonreactive. HOSPITAL COURSE When initially evaluated she was very angry, unhappy, irritable, very focused on discharge, minimizing the circumstances leading to this hospitalization. She displayed significant cognitive deficits. At times she would insist that this physician had earlier seen her in the morning and had promised to return later in the evening when this actually did not happen. She was observed to be seclusive and self isolated. Her appetite also was somewhat poor. I discussed her condition with her daughter, Keren, and explained to her my diagnosis, the treatment approach and discharge plans. She was supportive of it. To alleviate her depression she was started on Zoloft. Initially she agreed to take it but later she would refuse to take not only the Zoloft but other medication as well. This issue was addressed with her. Her daughter also discussed with her and informed her that unless she begins to participate actively in the treatment plan, she would not be returning home. This was quite effective and she began to comply with the medications. Towards the end of her admission, her irritability and crying episodes subsided significantly. I discussed the discharge plan again with her daughter and she preferred returning to her home temporarily. It should be mentioned that [facility] was initially involved due to her tendency to hold and living in unhygienic conditions. However, according to a daughter there was no hold from the DCF and she was in the process of cleaning her home. She felt the patient has improved significantly and could be discharged into her custody. She attended the treatment team meeting today where she displayed better attitude. She assured her compliance with the medication and the psychiatric follow up. As such the treatment team felt that she no longer met the [place] Act criteria and could be discharged home in the custody of her daughter. At the time of discharge he is denying any suicidal or homicidal ideations. She is not exhibiting any psychotic symptoms. She is not verbalizing any somatic complaints. Also during this admission she was seen by the medical microbiologist, Dr. Tony Leonardo. She was considered medically clear. Also she was seen in consultation by Dr. Quispe. He did not believe that the patient had NPH and did not feel further workup was necessary. It should be noted that she had extensive neurological workup done at [facility], reports of which are in the chart and are included in my history and physical. So at this time she is being discharged home with the following recommendations: medical followup with primary care physician. Psychiatric followup at [facility]. DISCHARGE MEDICATIONS: 1. Atorvastatin 40 milligrams p.o. q hs, 40 day supply. 2. Aricept 5 milligrams p.o. daily, 14 day supply with one refill. 3. Glucophage 500 milligrams p.o. b.i.d. pc, 14 day supply. 4. Zoloft 25 milligrams p.o. daily, 14 day supply with one refill. MD ALISA Mendoza /6:18 PM /7:06 PM
== END 2016-12-08 14:45 | disposition home or self-care (01) | DRG 882 ==
LOC: NEDAMB 18:17 → NEDA 11-30 13:28 → H250 11-30 20:27
PROVIDERS: ADMIT Psychiatry & Neurology Psychiatry; ATTEND Psychiatry & Neurology Psychiatry
DX: F43.25 Adjustment disorder with mixed disturbance of emotions and conduct (principal); E11.42 Type 2 diabetes mellitus with diabetic polyneuropathy; R45.851 Suicidal ideations; G30.9 Alzheimer's disease, unspecified; F02.81 Dementia in other diseases classified elsewhere, unspecified severity, with behavioral disturbance; F32.1 Major depressive disorder, single episode, moderate; E78.5 Hyperlipidemia, unspecified; Z83.3 Family history of diabetes mellitus; Z82.49 Family history of ischemic heart disease and other diseases of the circulatory system
CPT/HCPCS: 80053; 80061; 80307; 82140; 82306; 82607; 82948; 83036; 84443; 85025; 85652; 86038; 86140; 86592; 93005; J1815